=== PATIENT | male | born 1975 | race Native Hawaiian/Other Pacific Islander ===

== ENCOUNTER 2016-10-20 04:10 | Emergency (ER) | payer MEDICAID ==
--- NOTE | 2016-10-20 05:04 | EDPHY ---
H & P Stated Complaint: pt states that he is suicidal - Personal History Current Tetanus Diphtheria and Acellular Pertussis (TDAP): Yes - Medical/Surgical History Hx Asthma: No Hx Chronic Respiratory Disease: No Hx Diabetes: No Hx Cardiac Disease: No Hx Renal Disease: No Hx Cirrhosis: No Hx Alcoholism: Yes Hx HIV/AIDS: No Hx Splenectomy or Spleen Trauma: No Other PMH: schizophrenia, Manic, CHI as child - Social History Smoking Status: Current every day smoker Time Seen by Provider: 10/20/16 04:48 HPI/ROS: Chief Complaint: Suicidal HPI: 40-year-old male with past medical history schizophrenia. Patient is off his medications. States that he is feeling suicidal with thoughts of jumping in front of a bus. He states he is hearing voices in hallucinating which is his norm but is worse right now. Does state he has been using marijuana. Denies any other drug use. Does smoke and does drink alcohol. Does have a history of suicidality in the past. No recent illness. No chest pain or shortness of breath. No nausea or vomiting. No fevers or chills. ROS: 10 point Review of Systems is negative except as noted in the HPI. PMH: Schizophrenia Social History: Positive smoking, positive alcohol, occasional marijuana Family History: non-contributory Physical Exam: Gen: Awake, Alert, No Distress HEENT: Nose: no rhinorrhea Eyes: PERRLA, EOMI Mouth: Moist mucosa Neck: Supple, no JVD Chest: nontender, lungs clear to auscultation Heart: S1, S2 normal, no murmur Abd: Soft, non-tender, no guarding Back: no CVA tenderness, no midline tenderness Ext: no edema, non-tender Skin: no rash Neuro: CN II-XII intact, Sensation grossly intact, Strength 5/5 in bilateral upper and lower extremities (Matthew Merchant) Constitutional: Initial Vital Signs Temperature (C) 36.9 C 10/20/16 04:24 Heart Rate 69 10/20/16 04:24 Respiratory Rate 18 10/20/16 04:24 Blood Pressure 128/80 H 10/20/16 04:24 O2 Sat (%) 98 10/20/16 04:24 O2 Delivery Mode Room Air Allergies/Adverse Reactions: nutmeg Allergy (Uncoded 11/10/14 20:28) Home Medications: Medication Instructions Recorded Haloperidol [Haldol 10 MG (*)] 10 mg PO DAILY #3 tab 10/20/16 Medical Decision Making ED Course/Re-evaluation: Patient placed on a mental health hold by me. He will need medical clearance and mental health evaluation. Patient is medically cleared with exception of positive meth on his tox screen. He will need 12 hours of observation prior to mental health evaluation. [address] patient signed out to Dr. Orellana pending mental health evaluation. (Matthew Merchant) Critical Care Time: The patient is awaiting psychiatric Evaluation. Care transferred to Dr. Andres Manriquez at 3:00 p.m. (Oni Orellana) Other Provider: [id number]: Patient will be discharged in good condition with out-patient mental health follow up at the recommendation of the mental health senior java developer with small Haldol prescription. Return precautions given. (Andres Manriquez) - Data Points Laboratory Results: Laboratory Results 10/20/16 05:00 10/20/16 05:00 Departure - Departure Disposition: Home, Routine, Self-Care Clinical Impression: Methamphetamine abuse Condition: Good Instructions: Methamphetamine Abuse (ED) Additional Instructions: Follow up with mental health resources provider. Don't use methamphetamine. Use Haldol as prescribed. Referrals: NONE *PRIMARY CARE P,. [Primary Care Provider] - As per Instructions [facility] [Clinic] - As per Instructions Prescriptions: Haloperidol [Haldol 10 MG (*)] 10 mg PO DAILY #3 tab
[2016-10-20 05:11] LABS: % IMMATURE GRANULYOCYTES 0.2 % (0.0-1.1); ABSOLUTE IMMATURE GRANULOCYTES 0.01 10^3/uL (0.00-0.10); ADD DIFF? NO; ADD MORPH? NO; ADD SCAN? NO; ATYPICAL LYMPHOCYTE FLAG 0 (0-99); FRAGMENT RBC FLAG 0 (0-99); HEMATOCRIT 40.9 % (40.0-51.0); HEMOGLOBIN 13.9 g/dL (13.7-17.5); LEFT SHIFT FLG 0 (0-99); LIPEMIA HEMOLYSIS FLAG 90 (0-99); MEAN CELL HEMOGLOBIN 29.6 pg (27.9-34.1); MEAN PLATELET VOLUME 9.5 fL (8.7-11.7); PLATELET CLUMPS FLAG 0 (0-99); PLATELET COUNT 195 10^3/uL (150-400); RED CELL DISTRIBUTION WIDTH 13.2 % (11.5-15.2)
[2016-10-20 05:22] LABS: ANION GAP 9 mEq/L (8-16); CALCIUM 9.1 mg/dL (8.5-10.4); CARBON DIOXIDE 23 mEq/l (22-31); CHLORIDE 108 mEq/L (97-110); CREATININE 0.8 mg/dL (0.7-1.3); ETHANOL SERUM < 10 mg/dL (0-10); GLOMERULAR FILTRATION RATE > 60; GLUCOSE 90 mg/dL (70-100); SODIUM 140 mEq/L (134-144)
[2016-10-20 09:05] VITALS: RESP 16; O2SAT 96
[2016-10-20 18:58] VITALS: BP 129/82; PULSE 84; TEMP 98.2
== END 2016-10-20 19:41 | disposition home or self-care (01) ==
DX: F15.10 Other stimulant abuse, uncomplicated (principal); F17.200 Nicotine dependence, unspecified, uncomplicated
CPT/HCPCS: 80305; G0480